=== PATIENT | female | born 1960 | race Caucasian/White ===

== ENCOUNTER 2017-12-14 07:54 | Emergency (ER) | payer SELFPAY ==
[2017-12-14] MEDS ORDERED: IPRATROPIUM/ALBUTEROL 0.5-2.5 MG/3 ML AMPUL NEB ONE (08:15)
[2017-12-14] MEDS ORDERED: PREDNISONE 20 MG TABLET PO ONE (08:15)
--- NOTE | 2017-12-14 08:46 | RADIOLOGY REPORT (SQ) ---
EXAM DESCRIPTION: CHEST PA/LAT COMPLETED DATE/TIME: 12/14/2017 8:30 am REASON FOR STUDY: cough COMPARISON: 2009. TECHNIQUE: Frontal and lateral radiographic views of the chest acquired. NUMBER OF VIEWS: Two view. LIMITATIONS: None. FINDINGS: LUNGS AND PLEURA: No opacities, masses or pneumothorax. No pleural effusion. MEDIASTINUM AND HILAR STRUCTURES: No masses or contour abnormalities. HEART AND VASCULAR STRUCTURES: Heart normal size. No evidence for failure. BONES: No acute findings. HARDWARE: None in the chest. OTHER: No other significant finding. IMPRESSION: NO SIGNIFICANT RADIOGRAPHIC FINDING IN THE CHEST. TECHNICAL DOCUMENTATION: JOB ID: [id number] [employer]- All Rights Reserved Reading location - IP/workstation name: [email or web address]
[2017-12-14] MEDS ORDERED: ALBUTEROL SULFATE HFA (90 MCG/PUFF) 8 GM MDI (1 MDI/ER DISP) IH ONE (09:04)
--- NOTE | 2017-12-14 09:04 | ER Document Report ---
ED General - General Chief Complaint: Cough Stated Complaint: COUGH Time Seen by Provider: 12/14/17 08:11 TRAVEL OUTSIDE OF THE [place] IN LAST 30 DAYS: No - HPI Patient complains to provider of: Cough epigastric abdominal pain Notes: Patient coming in for cough and progressive abdominal pain ongoing for the last week. Patient states pain in the epigastrium is not increased. Patient states pain is only whenever is palpated or she is coughing. Patient denies any recent travel denies any chest pain. Patient is blood pressure was elevated upon triage states that she is not any medication. Patient states he smokes however since she has been sick and has not smoked for the last week. Denies fevers chills nausea vomiting productive sputum. - Related Data Allergies/Adverse Reactions: No Known Allergies Allergy (Verified 12/14/17 07:55) Past Medical History - Social History Smoking Status: Current Every Day Smoker Chew tobacco use (# tins/day): No Frequency of alcohol use: None Drug Abuse: None Family History: Reviewed & Not Pertinent Patient has suicidal ideation: No Patient has homicidal ideation: No - Past Medical History Cardiac Medical History: Reports: Hx Hypertension Renal/ Medical History: Denies: Hx Peritoneal Dialysis Psychiatric Medical History: Reports: Hx Attention Deficit Hyperactivity Disorder Past Surgical History: Reports: Hx Cardiac Catheterization - Stent placed, Hx Section - x2, Hx Tubal Ligation - Immunizations Hx Diphtheria, Pertussis, Tetanus Vaccination: No Review of Systems - Review of Systems Constitutional: No symptoms reported EENT: No symptoms reported Cardiovascular: No symptoms reported Respiratory: Cough Gastrointestinal: Abdominal pain Genitourinary: No symptoms reported Female Genitourinary: No symptoms reported Musculoskeletal: No symptoms reported Skin: No symptoms reported Hematologic/Lymphatic: No symptoms reported Neurological/Psychological: No symptoms reported -: Yes All other systems reviewed and negative Physical Exam - Vital signs Vitals: Temp Pulse Resp BP Pulse Ox 98.3 F 84 20 180/92 H 98 12/14/17 07:59 12/14/17 07:59 12/14/17 07:59 12/14/17 07:59 12/14/17 07:59 Interpretation: Normal - General General appearance: Appears well, Alert - HEENT Head: Normocephalic, Atraumatic Eyes: Normal Pupils: PERRL - Respiratory Respiratory status: No respiratory distress Chest status: Nontender Breath sounds: Wheezing Chest palpation: Normal - Cardiovascular Rhythm: Regular Heart sounds: Normal auscultation Murmur: No - Abdominal Inspection: Normal Distension: No distension Bowel sounds: Normal Tenderness: Tender Organomegaly: No organomegaly - Back Back: Normal, Nontender - Extremities General upper extremity: Normal inspection, Nontender, Normal color, Normal ROM , Normal temperature General lower extremity: Normal inspection, Nontender, Normal color, Normal ROM , Normal temperature, Normal weight bearing. No: Gato's sign - Neurological Neuro grossly intact: Yes Cognition: Normal Orientation: AAOx4 [place] Coma Scale Eye Opening: Spontaneous [place] Coma Scale Verbal: Oriented Hiram Coma Scale Motor: Obeys Commands Hiram Coma Scale Total: 15 Speech: Normal Motor strength normal: LUE, RUE, LLE, RLE Sensory: Normal - Psychological Associated symptoms: Normal affect, Normal mood - Skin Skin Temperature: Warm Skin Moisture: Dry Skin Color: Normal Course - Re-evaluation Re-evalutation: 12/14/17 15:09 Patient coming in for evaluation of upper abdominal pain epigastric with cough. Chest x-ray does not show any signs of pneumonia. More likely pain is due from coughing muscle strain. Patient denies any nausea vomiting no other acute abdominal pathology. Patient will be given Tylenol 3 for cough suppression and also pain control. Patient also was given albuterol inhalers encourage this patient to stop smoking. Patient states understanding will be discharged home. - Vital Signs Vital signs: Temp Pulse Resp BP Pulse Ox 98.1 F 81 16 141/73 H 94 12/14/17 09:12 12/14/17 09:12 12/14/17 09:12 12/14/17 09:12 12/14/17 09:12 Discharge - Discharge Clinical Impression: Bronchitis Condition: Good Disposition: HOME, SELF-CARE Instructions: Bronchitis With Bronchospasm (Wheezing) (OM), Oral Narcotic Medication (OM), Stop Smoking (OM) Additional Instructions: Please stop smoking. Return to ER symptoms worsen follow-up with your primary care physician. I also recommend using honey along with the prescribed medication to aid in cough suppression. Prescriptions: Acetaminophen with Codeine [Tylenol #3 Tablet] 1 each PO Q4HP PRN #30 tablet PRN Reason: Albuterol Sulfate [Proair HFA] 1 - 2 puff IH Q4 PRN #1 inhaler PRN Reason: Prednisone [Deltasone] 60 mg PO DAILY #24 tablet Forms: Elevated Blood Pressure, Smoking Cessation Education, Return to Work
[2017-12-14 09:17] VITALS: BP 141/73
== END 2017-12-14 09:16 | disposition home or self-care (01) ==
LOC: ER 07:54
DX: J40 Bronchitis, not specified as acute or chronic (principal); R05 Cough; R10.13 Epigastric pain; I10 Essential (primary) hypertension; R06.2 Wheezing; F17.200 Nicotine dependence, unspecified, uncomplicated; Z95.5 Presence of coronary angioplasty implant and graft
CPT/HCPCS: 94640; 99283; 71046; J7512; J3490; J7620